=== PATIENT | female | born 1955 | race Caucasian/White ===

== ENCOUNTER 2023-08-22 11:06 | Outpatient (OUT) | payer MEDICARE, SELFPAY ==
--- NOTE | 2023-08-22 11:09 | MM_ITS ---
Patient: ANDREW STEWART Exam Date: 08/22/2023 : 1955 Gender:F Ordering : DR Luis Guerra . Admission #: [id number] Family : Order #: [id number] CLICK HERE TO VIEW EXAM RADIOLOGY REPORT PROCEDURE: MM TOMOSYNTHESIS SCREENING BI COMPARISON: MG MAMM SCREEN 3D ALYSSA CAD, 08/19/2022. MG MAMM SCREEN 3D ALYSSA CAD, 08/18/2021. MG MAMM SCREEN ALYSSA W CAD, 08/15/2020. MG MAMM ALYSSA SCRN W CAD DIG, 02/13/2014. INDICATIONS: Screening Calculator Name NCI Breast Cancer Risk Assessment Tool 5 Year Breast Cancer Risk 3.10% Lifetime Breast Cancer Risk 11.40% Personal Breast Cancer No Personal Ovarian Cancer No Treatments None Family Cancers Sister with breast cancer at age 55; Father with pancreatic cancer at age 75; Aunt-maternal with brain cancer at age ~58; Uncle-maternal with colon cancer at age ~58. LOCATION: The BREAST COMPOSITION: Scattered areas fibroglandular density. FINDINGS: DIAGNOSTIC CATEGORY 1--NEGATIVE. RIGHT BREAST: No significant suspicious finding. No significant change has occurred. LEFT BREAST: No significant suspicious finding. No significant change has occurred. RECOMMENDATIONS: ROUTINE MAMMOGRAM AND CLINICAL EVALUATION IN 12 MONTHS. PLEASE NOTE: A NORMAL MAMMOGRAM DOES NOT EXCLUDE THE POSSIBILITY OF BREAST CANCER. A CLINICALLY SUSPICIOUS PALPABLE LUMP SHOULD BE BIOPSIED. Dictated by: Nam Scott M.D. on 08/22/2023 at 15:32 Approved by: Nam Scott M.D. on 08/22/2023 at 15:33
== END 2023-08-22 11:07 | disposition home or self-care (01) ==
LOC: MAMMO 11:06
PROVIDERS: PCP Family Medicine; Visit Provider Family Medicine
DX: Z12.31 Encounter for screening mammogram for malignant neoplasm of breast (principal); Z80.3 Family history of malignant neoplasm of breast; Z80.0 Family history of malignant neoplasm of digestive organs; Z80.8 Family history of malignant neoplasm of other organs or systems
CPT/HCPCS: 77063; 77067

== ENCOUNTER 2023-11-08 09:00 | Outpatient (REF) | payer MEDICARE, SELFPAY ==
--- OUTSIDE RECORDS SUMMARY | 2023-11-08 11:36 | XMS_ITS | CCD ---
Author Name Unknown Address [address] [place] [address] Organization [facility] Care Team Providers Care Migratory Worker Name Role Phone KATHLEEN, DR BOUCHER Primary Care Unavailable KATHLEEN, DR BOUCHER Admitting Unavailable KATHLEEN, DR BOUCHER Attending Unavailable KATHLEEN, DR BOUCHER Consulting Unavailable DR SANDER WANG Primary Care Unavailable KATHLEEN, DR BOUCHER Admitting Unavailable KATHLEEN, DR BOUCHER Attending Unavailable KATHLEEN, DR BOUCHER Consulting Unavailable ZIEBER, DR NAM Ryder Consulting Unavailable Problems Active Problems Problem Classification Problem Date Documented Da te Episodic/Chronic Other screening for suspected conditions (not mental disorders or infectious disease) (4 sources) Encounter for screening mammogram for malignant neoplasm of breast; Translations: [ENC SCR MAMMO MALIG NEOPLASM BREAST] Onset: 08-19-2022 Episodic Residual codes; unclassified (1 source) Family history of malignant neoplasm of breast; Translations: [FAMILY HX MALIG NEOPLASM OF BREAST] Onset: 08-22-2022 Episodic Residual codes; unclassified (1 source) Family history of malignant neoplasm of digestive organs; Translations: [FAM HX MALIG NEOPLASM DIGESTIV ORGN] Onset: 08-22-2022 Episodic Residual codes; unclassified (1 source) Family history of malignant neoplasm of other organs or systems; Translations: [FAM HX MALIG NEOPLASM OTH ORGN/SYS] Onset: 08-22-2022 Episodic Viral infection (4 sources) COVID-19; Translations: [COVID-19] Onset: 10-02-2021 Past or Other Problems Problem Classification Problem Date Documented Da te Episodic/Chronic Immunizations and screening for infectious disease (1 source) Encounter for immunization; Translations: [ENCOUNTER FOR IMMUNIZATION] Onset: 10-06-2021 Episodic Results Test Name Value Interpretation Reference Range Facil ity MG MAMM SCREEN 3D ALYSSA CADon 08-19-2022 MG MAMM SCREEN 3D ALYSSA CAD Patient: ANDREW STEWART Exam Date: 08/19/2022 : 1955 Gender:F Ordering : DR SANDER WANG . Admission #: [id number] Family : Order #: [id number] CLICK HERE TO VIEW EXAM RADIOLOGY REPORT PROCEDURE: MAMMOGRAM SCREENING 3D BILATERAL CAD COMPARISON: MG MAMM SCREEN 3D ALYSSA CAD, 08/18/2021. MG MAMM SCREEN ALYSSA W CAD, 08/15/2020. INDICATIONS: Screening mammography Calculator Name NCI Breast Cancer Risk Assessment Tool 5 Year Breast Cancer Risk 3.00% Lifetime Breast Cancer Risk 11.80% Personal Breast Cancer No Personal Ovarian Cancer No Treatments None Family Cancers Sister with breast cancer at age 55; Father with pancreatic cancer at age 75; Aunt-maternal with brain cancer at age 58; Uncle-maternal with colon cancer at age 58. LOCATION: The [facility] BREAST COMPOSITION: Scattered areas fibroglandular density. FINDINGS: DIAGNOSTIC CATEGORY 1--NEGATIVE. RIGHT BREAST: No significant suspicious finding. No significant change has occurred. LEFT BREAST: No significant suspicious finding. No significant change has occurred. RECOMMENDATIONS: ROUTINE MAMMOGRAM AND CLINICAL EVALUATION IN 12 MONTHS. PLEASE NOTE: A NORMAL MAMMOGRAM DOES NOT EXCLUDE THE POSSIBILITY OF BREAST CANCER. A CLINICALLY SUSPICIOUS PALPABLE LUMP SHOULD BE BIOPSIED. Dictated by: Nam Scott M.D. on 08/19/2022 at 13:54 Approved by: Nam Scott M.D. on 08/19/2022 at 13:58 Normal [facility] Encounters Encounter Date Encounter Type Care Provider Facility Start: 08-19-2022 End: 08-20-[address] SANDER WANG Facility:[facility] Start: 10-02-2021 End: 10-02-[address] SANDER WANG Facility:[facility] Payers Date Payer Category Payer Unknown [id number] 1955 Unknown [id number] 1955 Unknown [id number] Unknown [id number] Summary Purpose Family History No Family History Records Found Advance Directives No Advanced Directives Records Found Additional Source Comments INFORMATION SOURCE (unrecogn ized section and content) DATE CREATED AUTHOR 08/22/2022 The [facility] kelly FOR RECORDS PERTAINING TO PATIENTS WHO ARE OR HAVE BEEN ENROLLED IN A CHEMICAL DEPENDENCY/SUBSTANCEABUSE PROGRAM, SOME INFORMATION MAY BE OMITTED. This clinical summary was aggregated from multiple sources. Caution should be exercised in using it in the provision of clinical care. This summary normalizes information from multiple sources, and as a consequence, information in this document may materially change the coding, format and clinical context of patient data. In addition, data may be omitted in some cases. CLINICAL DECISIONS SHOULD BE BASED ON THE PRIMARY CLINICAL RECORDS. [facility] [employer] [facility]. provides no warranty or guarantee of the accuracy or completeness of information in this document.
[2023-11-08 11:43] LABS: Bilirubin Urine NEGATIVE (NEGATIVE); Blood Urine NEGATIVE (NEGATIVE); Clarity Urine CLEAR (CLEAR); Color Urine LT. YELLOW (YELLOW); Glucose Urine UA NEGATIVE (NEGATIVE); Ketones Urine NEGATIVE (NEGATIVE); Leukocyte Esterase Urine NEGATIVE (NEGATIVE); Nitrite Urine NEGATIVE (NEGATIVE); Protein Urine NEGATIVE (NEG/TRACE); Urobilinogen Urine 0.2 EU/dL (0.2-1.0); pH Urine 5.5 (5.0-9.0)
[2023-11-08 12:35] LABS: Bacteria Urine NONE SEEN #/HPF (NONE SEEN); Mucus Urine TRACE (NONE SEEN); RBC Urine NONE SEEN #/HPF (0-2); Squamous Epithelial Cell Urine FEW #/LPF (NONE/RARE); WBC Urine NONE SEEN #/HPF (NONE SEEN)
[2023-11-08 12:36] LABS: Urine Culture Indicated ALREADY ORDERED
== END 2023-11-08 09:01 | disposition home or self-care (01) ==
LOC: LAB 09:00
PROVIDERS: PCP Family Medicine; Visit Provider Family Medicine
DX: R32 Unspecified urinary incontinence (principal); N39.3 Stress incontinence (female) (male)
CPT/HCPCS: 81001; 87086

== ENCOUNTER 2024-02-13 12:34 | Outpatient (REF) | payer MEDICARE, SELFPAY ==
[2024-02-13 14:04] LABS: Influenza Virus A Antigen Negative; Influenza Virus B Antigen Negative; Internal Control Within Normal Limits; SARS-CoV-2 Ag NEGATIVE (NEGATIVE)
[2024-02-13 15:28] LABS: SARS-CoV-2 NAA INCONCLUSIVE (NOT DETECTE)
== END 2024-02-13 12:35 | disposition home or self-care (01) ==
LOC: LAB 12:34
PROVIDERS: PCP Family Medicine; Visit Provider Family Medicine
DX: J20.9 Acute bronchitis, unspecified (principal)
CPT/HCPCS: 87635; 87804; 87811

== ENCOUNTER 2024-08-23 10:33 | Outpatient (OUT) | payer MEDICARE, SELFPAY ==
--- NOTE | 2024-08-23 10:35 | MM_ITS ---
Patient Name: ANDREW STEWART MR#: [id number] : 1955 Exam Date: 08/23/2024 Ordering Doctor: DR Luis Guerra . RADIOLOGY REPORT PROCEDURE: MM TOMOSYNTHESIS SCREENING BI COMPARISON: MM TOMOSYNTHESIS SCREENING BI, 08/22/2023. INDICATIONS: Screening Calculator Name NCI Breast Cancer Risk Assessment Tool 5 Year Breast Cancer Risk 3.10% Lifetime Breast Cancer Risk 10.50% Personal Breast Cancer No Personal Ovarian Cancer No Treatments None Family Cancers Sister with breast cancer at age 55; Father with pancreatic cancer at age 75; Aunt-maternal with brain cancer at age ~58; Uncle-maternal with colon cancer at age ~58. LOCATION: The [facility] BREAST COMPOSITION: There are scattered areas of fibroglandular density. FINDINGS: DIAGNOSTIC CATEGORY 2--BENIGN FINDING. NO CHANGE FROM COMPARISON. Scattered benign-appearing calcifications are present. Scattered benign-appearing lymph nodes are present. RIGHT BREAST: No significant suspicious finding. LEFT BREAST: No significant suspicious finding. RECOMMENDATIONS: ROUTINE MAMMOGRAM AND CLINICAL EVALUATION IN 12 MONTHS. PLEASE NOTE: A NORMAL MAMMOGRAM DOES NOT EXCLUDE THE POSSIBILITY OF BREAST CANCER. A CLINICALLY SUSPICIOUS PALPABLE LUMP SHOULD BE BIOPSIED. Dictated by: Santos Johnson MD on 08/23/2024 at 12:40 Approved by: Santos Johnson MD on 08/23/2024 at 12:45
--- OUTSIDE RECORDS SUMMARY | 2024-08-23 10:50 | XMS_ITS | CCD ---
Author Organization [facility] Care Team Providers Care Chain Offbearer Name Role Phone DR SANDER WANG Primary Care Unavailable KATHLEEN, DR BOUCHER Admitting Unavailable KATHLEEN, DR BOUCHER Attending Unavailable KATHLEEN, DR BOUCHER Consulting Unavailable DR SANDER WANG Primary Care Unavailable DR SANDER WANG Admitting Unavailable KATHLEEN, DR BOUCHER Attending Unavailable KATHLEEN, DR BOUCHER Consulting Unavailable DR NAM SCOTT Consulting Unavailable Problems Active Problems Problem Classification [...] MAMM SCREEN 3D ALYSSA CAD Patient: ANDREW STEWART. Exam Date: 08/19/2022 : 1955 Gender:F Ordering : DR SANDER WANG . Admission #: [id number] Family : Order #: [id number] CLICK HERE TO VIEW EXAM RADIOLOGY REPORT [...] colon cancer at age 60. LOCATION: The [facility] BREAST COMPOSITION: Scattered areas fibroglandular density. FINDINGS: [...] Scott M.D. on 08/19/2022 at 13:58 Normal [facility] Encounters Encounter Date Encounter Type Care Provider Facility Start: 08-19-2022 End: 08-20-[address] SANDER WANG Facility:[facility] Start: 10-02-2021 End: 10-02-[address] SANDER WANG Facility:[facility] Payers Date Payer Category Payer Unknown [id number] 1955 Unknown [id number] 1955 Unknown [id number] Unknown [id number] Summary Purpose Family History No Family History Records Found Advance Directives No Advanced Directives Records Found Additional Source Comments INFORMATION SOURCE (unrecogn ized section and content) DATE CREATED AUTHOR 08/22/2022 [facility] FOR RECORDS PERTAINING TO PATIENTS WHO ARE [...] BE BASED ON THE PRIMARY CLINICAL RECORDS. [facility]. provides no warranty or guarantee of the accuracy or completeness of information in this document.
== END 2024-08-23 10:34 | disposition home or self-care (01) ==
LOC: MAMMO 10:33
PROVIDERS: PCP Family Medicine; Visit Provider Family Medicine
DX: Z12.31 Encounter for screening mammogram for malignant neoplasm of breast (principal); Z80.3 Family history of malignant neoplasm of breast; Z80.0 Family history of malignant neoplasm of digestive organs; Z80.8 Family history of malignant neoplasm of other organs or systems
CPT/HCPCS: 77063; 77067

== ENCOUNTER 2025-09-04 11:25 | Outpatient (OUT) | payer MEDICARE, SELFPAY ==
--- NOTE | 2025-09-04 | MM_ITS ---
Patient Name: ANDREW STEWART MR#: [id number] : 1955 Exam Date: 09/04/2025 Ordering Doctor: DR SANDER WANG . RADIOLOGY REPORT PROCEDURE: MM TOMOSYNTHESIS SCREENING BI COMPARISON: MM TOMOSYNTHESIS SCREENING BI, 08/23/2024. MM TOMOSYNTHESIS SCREENING BI, 08/22/2023. MG MAMM SCREEN 3D ALYSSA CAD, 08/19/2022. MG MAMM ALYSSA SCRN W CAD DIG, 02/13/2014. INDICATIONS: SCREENING Calculator Name NCI Breast Cancer Risk Assessment Tool 5 Year Breast Cancer Risk 3.20% Lifetime Breast Cancer Risk 10.10% Personal Breast Cancer No Personal Ovarian Cancer No Treatments None Family Cancers Sister with breast cancer at age 55; Father with pancreatic cancer at age 75; Aunt-maternal with brain cancer at age ~58; Uncle-maternal with colon cancer at age ~58. LOCATION: The [facility] BREAST COMPOSITION: There are scattered areas of fibroglandular density. FINDINGS: RIGHT BREAST: No significant suspicious finding. Benign-appearing calcifications are present. LEFT BREAST: No significant suspicious finding. Benign-appearing calcifications are present. DIAGNOSTIC CATEGORY 2--BENIGN FINDING. NO CHANGE FROM COMPARISON. RECOMMENDATIONS: ROUTINE MAMMOGRAM AND CLINICAL EVALUATION IN 12 MONTHS. Dictated by: Miguelangel Israel MD on 09/04/2025 at 16:09 Approved by: Miguelangel Israel MD on 09/04/2025 at 16:19
--- OUTSIDE RECORDS SUMMARY | 2025-09-04 11:28 | XMS_ITS | Patient Health Record ---
Author Organization [facility] [place] Address [address] [place] [address] Care Team Providers Care Vending Machine Collector Name Role Phone Dewayne Guerra Primary Care Provider Allergies No Known Allergies Results Component Value Reference Range Notes CBC AUTO DIFF Reviewed date:09/26/2024 07:36:27 PM Interpretation: Performing Lab: Notes/Report: [facility] , White Blood Count 5.7 4.0-11.0 10 3/uL Red Blood Count4.584.20-5.40 10 6/cYRxzyfaxgwn15.312.0-16.0 g/sWMhhtqvlkaj23.2 36.0-48.0 %Mean Corpuscular Lfbgpf04.181.0-99.0 fLMean Corpuscular Hemoglobin 31.226.7-34.0 pgMean Corpuscular HGB Conc33.929.9-35.2 g/dLRed Cell Distribution Width13.111.0-15.0 %Platelet Itjlo010760-589 10 3/uLMean Platelet Volume9.29.5- 13.5 fLNeutrophils Percent Auto53.143.0-75.0 %Lymphocytes Percent Auto31.520.5- 60.0 %Monocytes Percent Auto10.11.7-12.0 %Eosinophils Percent Auto4.20.9-7.0 % Basophils Percent Auto0.70.2-2.0 %Immature Granulocytes Pct Auto0.40.0-0.5 % Neutrophils Absolute Auto3.01.4-6.5 10 3/uLLymphocytes Absolute Auto1.81.2-3.8 10 3/uLMonocytes Absolute Auto0.60.3-0.8 10 3/uLEosinophils Absolute Auto0.20.0- 0.7 10 3/uLBasophils Absolute Auto0.00.0-0.1 10 3/uLImmature Granulocytes Abs Auto0.020.00-0.03 10 3/uLNucleated Red Blood Apkjs6Yotfzrrsjw Lab:see noteML - [facility] LBDAT - TSH Reviewed date:09/26/2024 07:36:27 PM Interpretation: Performing Lab: Notes/Report: [facility] ,Thyroid Stimulating Hormone1.5820.358-3.740 uIU/mLPerforming Lab:see [facility] LBGLYCOHEMOGLOBIN A1C Reviewed date:09/26/2024 07:36:27 PM Interpretation: Performing Lab: Notes/Report: [facility] ,Glycohemoglobin A1C6.04.5-6.2 % ADA RECOMMENDED LIMIT 4.0 - 6.0 ADA THERAPEUTIC TARGET < 7.0 ACTION SUGGESTED > 7.0 Estimated Average Yxdykug715Jtekqnbbun Lab:see note - [facility] LB Vitamin D Reviewed date:09/26/2024 07:36:27 PM Interpretation: Performing Lab: Notes/Report: [facility] ,Vitamin D39.1 <20 ng/mL Vit D deficient 20-<30 ng/mL Vit D insufficient 30-100 ng/mL Vit D sufficient >100 ng/mL Potential Toxicity Performing Lab:[facility] LBLipid Panel Reviewed date:09/26/2024 07:36:27 PM Interpretation: Performing Lab: Notes/Report: [facility] ,Byjfzutnsbkfj66<=150 mg/eWWmkwrhcmogp038<=200 mg/dLHDL Gdpkbgewrcf3370-02 mg/dL > or =60 mg/dl - LOW CARDIOVASCULAR RISK <40 mg/dl - HIGH CARDIOVASCULAR RISK LDL Cholesterol Qenfrkenxy140.0 <100 mg/dl OPTIMAL 100-129 mg/dl NEAR OR ABOVE OPTIMAL 130-159 mg/dl BORDERLINE HIGH 160-189 mg/dl HIGH >190 mg/dl VERY HIGH VLDL BNECBVCISQE18.6Chol HDL Ratio3.2 3.3 - 4.4 LOW RISK 4.4 - 7.1 AVERAGE RISK 7.1 - 11.0 MODERATE RISK >11.0 HIGH RISK Performing Lab:see noteML - [facility] LBDAT CMP Reviewed date:09/26/2024 07:36:27 PM Interpretation: Performing Lab: Notes/Report: [facility] ,Inuufi179152-544 mmol/LPotassium4.23.5-5.1 mmol/GMoljcvwr91249-350 mmol/LCarbon Zhggmpo70.421.0-32.0 mmol/LAnion Gap11.2Jhypcys66399-649 mg/dLBlood Urea Kbhzhotz03.07.0-18.0 mg/dLCreatinine0.820.55-1.02 mg/dLEstimated GFR ( Karolyn>60>=60 mL/min/1.73m 2Estimated GFR (Non- Aviva>60>=60 mL/min/1.73m 2BUN Creatinine Ratio17.0Zxskiqy7.08.5-10.1 mg/dLBilirubin Total0.50.2-1.0 mg/dL Aspartate Amino Efxavglfsnv8860-31 U/LAlanine Yncrdbvlcqzezjbm7897-92 U/L Alkaline Pzeaqpdcfwj4093-031 U/LTotal Protein6.96.4-8.2 g/dLAlbumin Level3.63.4- 5.0 g/dLGlobulin3.3Albumin Globulin Ratio1.1Performing Lab:see noteML - [facility] LB Reason For Referral No Information Medications Medication SIG (Take, Route, Frequency, Duration) Notes Start Date End Date Status AZO Cranberry Urinary Tract 250-60 MG as directe d Orally ActiveCalcium 500 MG1 tablet with meals Orally Twice a dayActiveVitamin E 100 UNITas directed OrallyActiveMeloxicam 15 MG1 tablet Orally Once a day; Duration: 30 days5ActiveZinc 100 MG1 tablet Orally Once a dayActiveMultivitamin - 1 tablet Orally Once a dayActiveAspirin 81 81 MG1 tablet Orally Once a dayActive Social History Tobacco Use: Social History Observation Description Date Details (start date - stop date) Former Smoker 10/24/1971 - 10/24/2012 Tobacco Use/Smoking Question Answer Notes Patient is a former smoker When did you start smoking?10/24/1971When did you stop smoking?10/24/2012lcohol Screen (Audit-C) Question Answer Notes Did you have a drink containing alcohol in the p ast year? Yes How often did you have 6 or more drinks on one occasion in the past year?Never (0 point)How many drinks did you have on a typical day when you were drinking in the past year?1 or 2 drinks (0 point)How often did you have a drink containing alcohol in the past year?Daily or almost daily (4 points)Mkewgj6Thfinqaodbaips PositiveAUDIT-C (Standard) Question Answer Notes Did you have a drink containing alcohol in the p ast year? Yes How often did you have a drink containing alcohol in the past year?2 to 3 times a week (3 points)How many drinks did you have on a typical day when you were drinking in the past year?1 or 2 drinks (0 point)How often did you have six or more drinks on one occasion in the past year?2 to 3 times per week (3 points) Oixvqx1CktblghcpxywrgKinnhuwh Problems Problem Type SNOMED Code ICD Code Onset Dates Problem Status W/U Status Risk Notes Problem Cervical radiculopathy (67498691) Cervica l radiculopathy (M54.12) ActiveconfirmedProblemAnxiety (65916171)Anxiety (F41.9)ActiveconfirmedProblem Osteopenia (940167957)Osteopenia (M85.80)ActiveconfirmedProblemObstructive sleep apnea syndrome (57902151)MARTHA (obstructive sleep apnea) (G47.33)Activeconfirmed ProblemLumbar radiculopathy (608286933)Lumbar radiculopathy (M54.16)Active confirmedProblemDisorder of lumbar disc (755805633)Lumbar disc disease (M51.9) ActiveconfirmedProblemSeasonal allergic rhinitis (713662999)Seasonal allergic rhinitis (J30.2)ActiveconfirmedProblemDegeneration of cervical intervertebral disc (24762041)Degenerative cervical disc (M50.30)ActiveconfirmedProblem Asthmatic bronchitis (687437339)Asthmatic bronchitis (J45.909)Activeconfirmed ProblemBiceps tendinitis (076825724)Biceps tendinitis (M75.20)Activeconfirmed ProblemSI - Stress incontinence (79220851)Stress incontinence (N39.3)Active confirmedProblemUrinary incontinence (964570760)Bladder leak (R32)Active confirmedProblemSpondylitis (21106112)Spondylitis (M46.90)ActiveconfirmedProblem Esophagitis (97185744)Esophagitis (K20.90)Activeconfirmed Vital Signs Blood pressure diastolic 80 mm Hg 05/06/2025 Vuhekw90 in05/06/2025lood pressure oheuefvh158 mm Hg05/06/20252021Kfrott625.6 lbs 05/06/2025BMI33.03 kg/m205/06/2025 Encounters Encounter Location Date Provider Diagnosis [facility] [address] [place] [address] 09/26/2024 Dewayne Guerra [facility] [place] [address] 05/06/2025Doug HoyBiceps tendinitis M75.20 Assessments Encounter Date Diagnosis (ICD Code) Assessment Notes Treatment Notes Treatment Clinical Notes Section Notes 05/06/2025 Biceps tendinitis (ICD-10 - M75. 20) Plan Of Treatment Pending Test Test Name Order Date Urinalysis Microscopic 11/07/2023 CULTURE URINE 11/07/2023 Insurance Providers Payer Name Payer Address Payer Phone Subscriber Number Group Number Insured Name Patient Relationship to Insured Coverage Start Date Coverage End Date [employer] MEDICARE ADV PLAN [facility] [id number] [place] [address] [id number] Usman Clark - patient is the insured Medical (General) History Medical History History ICD Code Degenerative cervical disc M50.30 Cervical radiculopathy M54.12 Spondylitis M46.90 Esophagitis K20.90 Rib fracture, left Asthmatic tkojbvldftE02.909Lumbar disc lhxenrhJ69.9Lumbar kgmymnsnywgxgQ90.16OSA (obstructive sleep apnea)G47.37DjehuugH49.9Seasonal allergic xdpvyqrfT47.2 QswcknfiroT62.80Surgical History Surgery Date(Month/Year) Lap Violeta EGDHysterectomy
--- OUTSIDE RECORDS SUMMARY | 2025-09-04 11:37 | XMS_ITS | CCD ---
Author Organization [facility] Care Team Providers Care Boring Mill Set Up Operator Vertical Name Role Phone DR SANDER WANG Primary Care Unavailable KATHLEEN, DR BOUCHER Admitting Unavailable KATHLEEN, DR BOUCHER Attending Unavailable KATHLEEN, DR BOUCHER Consulting Unavailable DR SANDER WANG Primary Care Unavailable KATHLEEN, DR BOUCHER Admitting Unavailable KATHLEEN, DR BOUCHER Attending Unavailable KATHLEEN, DR BOUCHER Consulting Unavailable ZILISAER, DR NAM Ryder Consulting Unavailable Problems Active Problems Problem ClassificationProblemDateDocumented DateEpisodic/ChronicOther screening for suspected conditions (not mental disorders or infectious disease) (4 sources)Encounter for screening mammogram for malignant neoplasm of breast; Translations: [ENC SCR MAMMO MALIG NEOPLASM BREAST]Onset: 94-76-3421Kgjpchdv Residual codes; unclassified (1 source)Family history of malignant neoplasm of breast; Translations: [FAMILY HX MALIG NEOPLASM OF BREAST]Onset: 61-46-2350TgovhcjgRnazhhei codes; unclassified (1 source)Family history of malignant neoplasm of digestive organs; Translations: [FAM HX MALIG NEOPLASM DIGESTIV ORGN]Onset: 47-22-9805Fjssxjxl Residual codes; unclassified (1 source)Family history of malignant neoplasm of other organs or systems; Translations: [FAM HX MALIG NEOPLASM OTH ORGN/SYS]Onset: 94-03-3949LjqgwlzeSilaz infection (4 sources)COVID-19; Translations: [COVID-19]Onset: 10-02-2021 Past or Other Problems Problem ClassificationProblemDateDocumented DateEpisodic/ChronicImmunizations and screening for infectious disease (1 source)Encounter for immunization; Translations: [ENCOUNTER FOR IMMUNIZATION] Onset: 84-43-7513Tqegskun Results Test NameValueInterpretationReference RangeFacilityMG MAMM SCREEN 3D ALYSSA CADon 55-56-9280YC MAMM SCREEN 3D ALYSSA CADPatient: ANDREW STEWART Exam Date: 08/19/2022 : 1955 Gender:F Ordering : DR SANDER WANG . Admission #: [id number] Family : Order #: [id number] CLICK HERE TO VIEW EXAM RADIOLOGY REPORT PROCEDURE: MAMMOGRAM SCREENING 3D BILATERAL CAD COMPARISON: MG MAMM SCREEN 3D ALYSSA CAD, 08/18/2021. MG MAMM SCREEN ALYSSA W CAD, 08/15/2020. INDICATIONS: Screening mammography Calculator Name [facility] Breast Cancer Risk Assessment Tool 5 Year Breast Cancer Risk 3.00% Lifetime Breast Cancer Risk 11.80% Personal Breast Cancer No Personal Ovarian Cancer No Treatments None Family Cancers Sister with breast cancer at age 55; Father with pancreatic cancer at age 75; Aunt-maternal with brain cancer at age 58; Uncle-maternal with colon cancer at age 58. LOCATION: The [facility] BREAST COMPOSITION: Scattered areas fibroglandular density. FINDINGS: [...] by: Nam Scott M.D. on 08/19/2022 at 13:58[facility] Encounters Encounter DateEncounter TypeCare ProviderFacilityStart: 08-19-2022 End: 01-96-9111nsbslwlkneVL SANDER HOYFacility:O8Gljbe: 10-02-2021 End: 00-08-0310nmarlbleylDZ SANDER HOYFacility:H1 Payers DatePayer CategoryPayerPolicy [id number] Summary Purpose Family History No Family History Records Found Advance Directives No Advanced Directives Records Found Additional Source Comments INFORMATION SOURCE (unrecogn ized section and content) DATE CREATED AUTHOR 08/22/2022 [facility] FOR RECORDS PERTAINING TO PATIENTS WHO ARE [...] BE BASED ON THE PRIMARY CLINICAL RECORDS. [facility] [employer] [facility]. provides no warranty or guarantee of the accuracy or completeness of information in this document.
== END 2025-09-04 11:26 | disposition home or self-care (01) ==
LOC: MAMMO 11:25
PROVIDERS: PCP Family Medicine; Visit Provider Family Medicine
DX: Z12.31 Encounter for screening mammogram for malignant neoplasm of breast (principal); Z80.3 Family history of malignant neoplasm of breast; Z80.0 Family history of malignant neoplasm of digestive organs; Z80.8 Family history of malignant neoplasm of other organs or systems
CPT/HCPCS: 77063; 77067